=== PATIENT | male | born 1965 | race Caucasian/White ===

== ENCOUNTER 2017-03-26 12:08 | Emergency (ER) | payer MEDICAID ==
[~2017-03-26] VITALS: Ht 177.8 cm; Wt 83.9 kg
--- NOTE | 2017-03-26 12:25 | NUR ---
Patient discharged to home in stable conditon. Written and verbal after care instructions given to patient. Patient verbalizes understanding of instructions. Patient left ER with brisk steady gait using his own camboot.
== END 2017-03-26 12:27 | disposition home or self-care (01) ==
LOC: ER 12:08
DX: M79.671 Pain in right foot (principal); I10 Essential (primary) hypertension; Z88.8 Allergy status to other drugs, medicaments and biological substances
CPT/HCPCS: A4663